=== PATIENT | female | born 1970 | race Two or more races ===

== ENCOUNTER 2021-04-15 01:20 | Emergency (ER) | payer MEDICAID ==
[~2021-04-15] VITALS: Ht 165.1 cm; Wt 87.0 kg
[2021-04-15] MEDS ORDERED: IBUP-2029 MT (04:27)
[2021-04-15] MEDS ORDERED: KETOROLAC 60MG/2ML VIAL IM ONE (04:30)
[2021-04-15 05:20] VITALS: BP 139/74
== END 2021-04-15 05:20 | disposition home or self-care (01) ==
LOC: ER 01:20
DX: M25.561 Pain in right knee (principal); K21.9 Gastro-esophageal reflux disease without esophagitis; I10 Essential (primary) hypertension; Z90.49 Acquired absence of other specified parts of digestive tract
CPT/HCPCS: 96372; 99283; J1885